=== PATIENT | male | born 1995 | race Asian ===

== ENCOUNTER 2017-12-07 16:08 | Emergency (ER) | payer OTHER ==
[2017-12-07 16:13] VITALS: BP 123/83; PULSE 96; RESP 16; TEMP 97.7; O2SAT 94
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
== END 2017-12-07 17:18 | disposition home or self-care (01) ==
DX: S80.02XA Contusion of left knee, initial encounter (principal); V49.40XA Driver injured in collision with unspecified motor vehicles in traffic accident, initial encounter; Y92.410 Unspecified street and highway as the place of occurrence of the external cause; Y99.8 Other external cause status; Y93.89 Activity, other specified

== ENCOUNTER 2019-04-23 13:07 | Emergency (ER) | payer OTHER | END 2019-04-23 15:45 | disposition home or self-care (01) ==